=== PATIENT | female | born 1990 | race Caucasian/White ===

== ENCOUNTER → 2017-12-09 | Outpatient (CLI) | payer OTHER ==
--- NOTE | 2017-12-10 07:46 | MAMMOGRAPHY REPORT ---
ULTRASOUND OF RIGHT BREAST: 12/09/2017 CLINICAL HISTORY: The patient reports last Wednesday she had episodes of sharp pain involving her righ t breast; currently the pain has improved. Her provider also felt palpable right breast masses duri ng a clinical exam. The provider order reports the masses are located at the nipple at 9:00 and 6:00 . COMPARISON: No prior exams were available for comparison. TECHNIQUE: Real-time targeted ultrasound of the right breast was performed. FINDINGS: Real-time, high-resolution targeted ultrasound was performed of the area of pain pointed ou t by the patient in the right 7:00 breast. No suspicious abnormalities are seen in this region. Inc identally noted in the right breast at 7:00, 5 cm from the nipple, is an oval anechoic benign simple cyst measuring 4 x 4 mm. Targeted ultrasound was performed of the right 6 and 9:00 subareolar region s at the sites of the palpable masses reported by the referring provider. No suspicious abnormality are seen in this region. In the right breast at 9:00, 4 cm from the nipple, there is a circumscribed anechoic 7 x 3 x 7 mm mass with a thin internal septation, consistent with a benign cyst. Slightly inferior to this at approximately 8-830, 4-5 cm from the nipple, there is an oval parallel circumscri bed hypoechoic mass which measures 9 x 3 x 6 mm. The mass is probably benign and may represent a com plicated cyst versus a benign solid mass such as a fibroadenoma. IMPRESSION: ACR-BI-RADS CATEGORY 3: PROBABLY BENIGN - FOLLOW-UP RECOMMENDED 1. No suspicious sonographic abnormality at the site of right 7:00 breast pain pointed out by the pa tiesandeep, as well as the areas of the right breast palpable masses described by the referring provider. Recommend clinical follow-up. 2. A few small benign cysts were seen during the ultrasound exam. A circumscribed hypoechoic 9 mm m ass in the right breast at approximately 8-8:30 is probably benign and may represent a complicated cy st versus a fibroadenoma. The options of short interval follow-up ultrasound in 6 months versus aspi ration/biopsy were discussed with the patient, and she would like to speak with her family before sina ing a decision. The patient was verbally notified of the results. Megan Ferreira M.D. /:12/09/2017 13:41:41 Skein Straightener: Megan Ferreira MD, [facility] letter sent: Follow Up Recommended 3 BI-RADS Code: ACR-BI-RADS Category 3: Probably Benign
== END | disposition home or self-care (01) ==
LOC: C.MAMM 12:59
PROVIDERS: ATTEND Physician Assistant Medical
DX: N63.13 Unspecified lump in the right breast, lower outer quadrant (principal)

== ENCOUNTER → 2017-12-13 | Outpatient (CLI) | payer OTHER ==
--- NOTE | 2017-12-13 08:29 | Discharge Instructions ---
Discharge Instructions Procedure Procedure Date: Dec 13, 2017. Reason for visit: Right Mass. Discharge Discharge Date: Dec 13, 2017. Discharge Diagnosis: post right breast ultrasound guided core biopsy Instructions Activity Recommendations: Additional Limitations (see below) Return to School/Work: no limitations Recommended Home Diet: No Limitations Provider Instructions: ACTIVITY RECOMMENDATIONS: * No lifting, pushing, pulling or exercising the affected side for three days. RETURN TO SCHOOL/WORK: * You may return to work/school after the procedure, but do not perform any strenuous activities for 24 to 48 hours. MEDICATIONS: * Tylenol (two 325 mg) every four to six hours if needed for mild pain (if not allergic to Tylenol). DIET: * Resume previous diet. SPECIAL CARE INSTRUCTIONS: * Keep biopsy site dry for 24 hours. May shower after 24 hours, but do not soak (bathe) incision. * May remove Tegaderm (plastic patch) tomorrow AFTER showering. * Leave the steri-strips on for one week. Allow the steri-strips to fall off by themselves. If not off after one week, you may remove them. You may place a Bandaid crosswise over the strips, if desired. * Apply ice 10 minutes on and 10 minutes off as needed. * Wear a bra at bedtime to sleep more comfortably for 2-3 days. * Your referring physician should have the results after approximately 5 to 7 business days. * Call for unusual bleeding, fever, drainage, etc or if you have any questions call [phone] during normal business hours or after hours call Dr Augustin, . FOLLOW UP VISIT: Follow-up with Referring Physician as scheduled. Epi Jordan Recommendations: Call your doctor if: * Temperature above 101 degrees * Pain not relieved by pain medicine ordered * There is increased drainage or redness from any incision * You have any unanswered questions or concerns. Your Doctors Instructions noted above were prepared by provider Eli Augustin. Patient Signature Section: Patient Instructions Signature Page Palmira [place] Patient (or Guardian) Signature/Date: I have read and understand the instructions given to me by my caregivers. Caregiver/RN/Doctor Signature/Date: The above-named patient and/or guardian has received patient instructions on this date. + Original Patient Signature Page (only) stays with chart. Please make copy for patient.
--- NOTE | 2017-12-14 07:45 | MAMMOGRAPHY REPORT ---
ULTRASOUND GUIDED BIOPSY RIGHT BREAST: 12/13/2017 CLINICAL HISTORY: 27-year-old woman presents for biopsy of an indeterminate lobulated and circumscrib ed hypoechoic solid versus cystic mass in the 8:00 to 830 right breast, 5 cm from the nipple. COMPARISON: Comparison is made to exam dated: 12/09/2017 ultrasound - [facility]. PATIENT CONSENT: The procedure, risks and benefits were discussed with the patient and informed conse nt was obtained both verbally and in writing. Specific risks to this procedure include: bleeding, in fection, puncture of adjacent structure, nontarget biopsy, sampling error, pain, metal allergy and me dication reaction. PROCEDURE DESCRIPTION: A time out was performed and the right breast was agreed as the site of biopsy . The skin was prepped and draped in the usual sterile fashion. The 9 mm solid mass in the 8:00 to 8: 30 right breast was chosen as the target for biopsy. Subcutaneous and intraparenchymal 1% buffered li docaine, with and without epinephrine, was administered as local anesthesia. A skin incision was made . Through the incision, 6 samples were taken with a 14 gauge Achieve biopsy device. A ribbon shaped metallic marker was placed at the biopsy site. Hemostasis was achieved after manual compression. The patient tolerated the procedure well and there was no immediate complication. The samples were sent to the pathology department in an appropriately labeled container. Postprocedure mammography was deferred given the patient's age. IMPRESSION: ULTRASOUND GUIDED BIOPSY Status post ultrasound-guided core biopsy of an indeterminate 9 mm hypoechoic lobulated mass in the 8 :00 to 830 right breast, with ribbon-shaped biopsy marker clip placed at the site. The patient will receive written notification of the results. Eli Augustin M.D. ay/:12/13/2017 08:34:08 Seat Mender: Kal OCAMPO)([place]), [facility]
== END | disposition home or self-care (01) ==
LOC: C.MAMM 07:44
PROVIDERS: ATTEND Physician Assistant Medical
DX: N63.10 Unspecified lump in the right breast, unspecified quadrant (principal)